=== PATIENT | male | born 1960 | race Hispanic/Latino ===

== ENCOUNTER 2023-08-25 06:30 | Day surgery (SDC) | payer OTHER ==
[~2023-08-25] VITALS: Ht 175.3 cm; Wt 98.2 kg
[2023-08-25] VITALS (11 sets, daily range): BP systolic 111–135; BP diastolic 67–87; PULSE 63–81; RESP 10–17
[~2023-08-25 06:30] MED LIST: LOSA50TA64 PO; OMEP20TA20 PO; ROSU10TA28 PO
[2023-08-25] MEDS ORDERED: PROPOFOL 10 MG/ML 20ML VIAL IV ONE (08:07)
== END 2023-08-25 09:33 | disposition home or self-care (01) ==
LOC: DAH 06:30 → ENDO 06:30
PROVIDERS: ATTEND Internal Medicine
DX: R12 Heartburn (principal); R14.0 Abdominal distension (gaseous); K29.50 Unspecified chronic gastritis without bleeding; K44.9 Diaphragmatic hernia without obstruction or gangrene; Z98.890 Other specified postprocedural states; Z87.891 Personal history of nicotine dependence; Z72.89 Other problems related to lifestyle; Z86.19 Personal history of other infectious and parasitic diseases
CPT/HCPCS: 43239; J2704; A4620; A4215 ×2; A4223; A7002; A4222; A4221; A4663; J7030; A4606; J3490

== ENCOUNTER 2024-09-13 05:53 | Day surgery (SDC) | payer OTHER ==
[~2024-09-13] VITALS: Ht 172.7 cm; Wt 99.8 kg
[2024-09-13] VITALS (11 sets, daily range): BP systolic 104–144; BP diastolic 73–89; PULSE 69–78; RESP 12–19; TEMP 97.2–98.2
[~2024-09-13 05:53] MED LIST changes: -ROSU10TA28 PO; +ROSU10TA72 PO
[2024-09-13] MEDS: 0.9%NACL 1000ML 1,000 ML IV ONE (07:06)
[2024-09-13] MEDS ORDERED: proPOFol 10 MG/ML 20ML VIAL IV ONE (08:01)
[2024-09-13] MEDS ORDERED: LIDOCAINE HCL 1% 20 ML VIAL ONE (08:01)
== END 2024-09-13 09:33 | disposition home or self-care (01) ==
LOC: DAH 05:53 → ENDO 05:53
PROVIDERS: ATTEND Internal Medicine Gastroenterology
DX: Z12.11 Encounter for screening for malignant neoplasm of colon (principal); K57.30 Diverticulosis of large intestine without perforation or abscess without bleeding; K64.9 Unspecified hemorrhoids; K44.9 Diaphragmatic hernia without obstruction or gangrene; R12 Heartburn; I10 Essential (primary) hypertension; R14.0 Abdominal distension (gaseous); K29.50 Unspecified chronic gastritis without bleeding; Z83.719 Family history of colon polyps, unspecified; E66.9 Obesity, unspecified; Z86.0100 Personal history of colon polyps, unspecified; Z91.09 Other allergy status, other than to drugs and biological substances; Z79.899 Other long term (current) drug therapy; Z68.32 Body mass index [BMI] 32.0-32.9, adult; Z96.659 Presence of unspecified artificial knee joint; Z98.890 Other specified postprocedural states
CPT/HCPCS: 45378; J7030; J2704; A4620; A4215; G0105; J3490